=== PATIENT | female | born 1990 | race Asian ===

== ENCOUNTER 2019-11-17 04:44 | Emergency (ER) | payer BC ==
[~2019-11-17] VITALS: Ht 157.5 cm; Wt 64.9 kg
[2019-11-17 04:49] VITALS: Ht 157.5 cm; Wt 64.9 kg
[2019-11-17 06:26] LABS: BASOPHIL % 0.4 % (0-2); PLATELET COUNT 317 x10^3mcL (130-400); RED CELL DISTRIBUTION WIDTH 12.2 % (11.5-14.5)
[2019-11-17 07:56] VITALS: BP 147/90
== END 2019-11-17 07:56 | disposition home or self-care (01) ==
LOC: ED 04:44
PROVIDERS: Emergency Medicine
DX: O20.0 Threatened abortion (principal)
CPT/HCPCS: J7030